=== PATIENT | female | born 1985 | race Caucasian/White ===

== ENCOUNTER → 2016-10-31 | Outpatient (CLI) | payer BC ==
[~2016-10-31] MED LIST: DPPI400 INJ; LORA10TA51 PO; NAPR1CAP12 PO
== END | disposition home or self-care (01) ==
LOC: C.PAPS 14:33
PROVIDERS: ATTEND Obstetrics & Gynecology
DX: Z01.419 Encounter for gynecological examination (general) (routine) without abnormal findings (principal)

== ENCOUNTER → 2016-10-31 | Outpatient (CLI) | payer BC ==
[2016-11-02 11:38] LABS: HERPES SIMPLEX AB IGG-1 >5.00; HERPES SIMPLEX AB IGG-2 0.08
[2016-11-02 21:57] LABS: CHLAMYDIA TRACH RNA*** NOT DETECTED (NOT DETECTED); GC (NEIS GONORRHOEAE)RNA** NOT DETECTED (NOT DETECTED)
== END | disposition home or self-care (01) ==
LOC: C.LAB1850 09:21
PROVIDERS: ATTEND Obstetrics & Gynecology
DX: Z11.3 Encounter for screening for infections with a predominantly sexual mode of transmission (principal)

== ENCOUNTER → 2017-09-04 | Outpatient (CLI) | payer BC ==
[2017-09-04 12:12] LABS: BASO % 0.2 %; BASO ABS # 0.02 K/uL (0-0.2); COMPLETE YES; HEMATOCRIT 40.1 % (37-47); IG% 0.3 %; LYMPH % 30.7 %; LYMPH ABS # 3.37 K/uL (1.2-3.4); MEAN CELL VOLUME 88.1 fL (80-100); MEAN CORPUSCULAR HEMOGLOBIN 28.8 pg (25-34); MEAN CORPUSCULAR HGB CONC 32.7 g/dl (32-36); MEAN PLATELET VOLUME 10.3 fL (7.4-10.4); MONO % 6.8 %; PLATELET COUNT 297 K/uL (130-400); RED BLOOD COUNT 4.55 M/uL (4.2-5.4); WHITE BLOOD COUNT 10.96 K/uL (4.8-10.8)
== END | disposition home or self-care (01) ==
LOC: C.LAB1850 10:35
PROVIDERS: ATTEND Internal Medicine
DX: D72.829 Elevated white blood cell count, unspecified (principal)

== ENCOUNTER 2017-09-13 19:52 | Emergency (ER) | payer BC ==
[~2017-09-13] VITALS: Ht 166.4 cm; Wt 105.9 kg
[2017-09-13 19:55] VITALS: TEMP 36.8; Ht 166.4 cm; Wt 105.9 kg
[2017-09-13] MEDS ORDERED: DICL1GEL34 TOP (20:26)
[2017-09-13] MEDS ORDERED: MEDR150I19 IM (20:26)
[2017-09-13] MEDS ORDERED: FLX/5 PO (20:26)
[2017-09-13] MEDS ORDERED: ASPI-390 PO (20:26)
[2017-09-13] MEDS ORDERED: KETOROLAC TROMETHAMINE 60 MG/2 ML VIAL IM STA (20:28)
[2017-09-13] MEDS ORDERED: DIAZEPAM 5MG TAB PO STA (20:28)
--- NOTE | 2017-09-13 20:45 | EMERGENCY ROOM VISIT NOTE ---
ED Visit Note First contact with patient: 20:01 CHIEF COMPLAINT: Low back pain HISTORY OF PRESENT ILLNESS: This is a 32-year-old female presents to the emergency department with complaint of pain in the low back which has been getting progressively worse over the past several days. She states she has been dealing with low back pain and a "pinched nerve in my back" for the past month, has been doing physical therapy, and felt that she was improving, until the past few days when her pain became more severe. The pain was gradual in onset, is now constant and worse with movement, especially bending over and lifting her legs, 8/10. She has been taking Excedrin and her Flexeril without much improvement. She denies any known injury to the back. Denies any bowel or bladder difficulties or saddle paresthesias. There has been no leg numbness or weakness. No recent direct trauma to the back. No nausea/vomiting or abdominal pain, diarrhea, constipation, bloody or black stools, urinary symptoms , or abnormal vaginal discharge/bleeding. REVIEW OF SYSTEMS: No significant prior back injuries, no abdominal pain, vomiting or diarrhea, no chest pain or shortness of breath. No dysuria or increased urinary frequency. PMH: The patient is healthy; there is no significant medical or surgical history. SOCIAL HISTORY: Patient lives at home. ALLERGIES: No known allergies PHYSICAL EXAM: Vital Signs: Reviewed Nurse's notes. MENTAL STATUS: Alert and oriented. NECK: Supple, non-tender. ABDOMEN: Soft, non-tender, no palpable masses or HSM. Bowel sounds normal throughout. BACK: Tenderness in the paraspinous muscles diffuse across the lumbar area, most significant on the left. No tenderness over the spinous processes of the lumbar vertebrae. LEGS: Normal strength including dorsi-flexion and plantar flexion of the feet. Negative bilateral straight leg raising, normal and symmetrical knee and ankle reflexes. EMERGENCY DEPARTMENT COURSE: I examined the patient. Differential diagnosis includes lumbar muscle strain, sprain, disc herniation, sciatica, UTI. No trauma to suggest acute fracture or subluxation. No red flags on history or exam to concern for cauda equina syndrome. Neuro exam is normal with no deficits. Patient was given IM Toradol and PO Valium, with good improvement in her pain. UA and urine are negative. She was encouraged to continue her physical therapy and follow closely with her PCP, as well as given strict return precautions should her symptoms worsen, she verbalized understanding. She was provided with prescription strength naproxen for pain management and encouraged to continue use of her Flexeril as needed for muscle spasms. Patient was discharged home in stable condition and ambulatory. Problem List Medical Problems: (1) History of torn meniscus of left knee Status: Chronic (2) History of torn meniscus of right knee Status: Chronic Current/Historical Medications Scheduled Medroxyprogesterone Acetate (C (Medroxyprogesterone Aceta), 150 MG IM UD Naproxen (Naprosyn), 500 MG PO BID Scheduled PRN Xtwteei-Gqwzryswkzebz-Mytyojqy (Excedrin Migraine), 1 TAB PO UD PRN for Headache Cyclobenzaprine HCl (Cyclobenzaprine HCl), 5-10 MG PO HS PRN for Muscle Spasm Diclofenac Sodium (Topical) (Diclofenac Sodium), 1 APPLN TOP BID PRN for Pain Allergies Coded Allergies: No Known Allergies (Verified , 06/21/15) Vital Signs Date Time Temp Pulse Resp B/P (MAP) Pulse Ox O2 Delivery O2 Flow Rate FiO2 09/13/17 22:07 82 18 141/100 100 Room Air 09/13/17 19:55 36.8 84 18 146/83 100 Room Air Laboratory Results Test 09/13/17 20:28 09/13/17 20:40 Bedside Urine Test NEG (NEG) Urine Color YELLOW Urine Appearance CLEAR (CLEAR) Urine pH 7.0 (4.5-7.5) Urine Specific [place] 1.019 (1.000-1.030) Urine Protein NEG (NEG) Urine Glucose (UA) NEG (NEG) Urine Ketones NEG (NEG) Urine Occult Blood NEG (NEG) Urine Nitrite NEG (NEG) Urine Bilirubin NEG (NEG) Urine Urobilinogen NEG (NEG) Urine Leukocyte Esterase NEG (NEG) Medications Administered Medications (Trade) Dose Ordered Sig/Jagruti Route Start Time Stop Time Status Last Admin Dose Admin Ketorolac Tromethamine (Toradol Inj) 60 mg NOW STAT IM 09/13/17 20:28 09/13/17 20:30 DC 09/13/17 20:46 60 MG Diazepam (Valium Tab) 10 mg NOW STAT PO 09/13/17 20:28 09/13/17 20:30 DC 09/13/17 20:46 10 MG Departure Information Impression Primary Impression: Strain of lumbar region Dispostion Home / Self-Care Condition GOOD Prescriptions Naproxen (Naprosyn) 500 Mg Tab 500 MG PO BID for 14 Days, #28 TAB Prov: Noemy Shanks CRNP 09/13/17 Referrals RV. Aguirre MD (PCP) Patient Instructions ED Exercises Lumbar Muscles, ED Sprain Strain Lumbar, [facility] Additional Instructions Take it easy for the next few days, no strenuous activity, heavy lifting, or bending/twisting motions, to allow your back to rest. Alternate heat and ice for comfort. After heat, you may do gentle stretching and massage to the low back. Naproxen as prescribed twice a day for the next two weeks to treat your pain and inflammation in your back. Do not take other NSAIDs while you are taking this medication. Take with food to avoid stomach upset. Continue taking your prescribed Flexeril muscle relaxer as directed, as needed for muscle tightness and spasms. This may make you drowsy. Do not drive or drink alcohol while taking. Follow up with your PCP in the next few days for further management. You should keep your appointment with physical therapy and discussed modifying your exercise plan. Please return to the ER if any problems with bowel or bladder function, numbness in your groin, high fevers, severe abdominal pain or worsening back pain, or if loss of feeling/movement of legs. Work Instructions Return To Work: 2 days Problem Qualifiers Primary Impression: Strain of lumbar region Encounter type: initial encounter Qualified Codes: S39.012A - Strain of muscle, fascia and tendon of lower back, initial encounter
[2017-09-13] MEDS ORDERED: NAPR-22 PO (22:02)
[2017-09-13 22:07] VITALS: BP 141/100; PULSE 82; O2SAT 100
[2017-12-01] MEDS ORDERED: MISCCAP80 PO (08:46)
[2017-12-01] MEDS ORDERED: MULT-506 PO (08:46)
[2017-12-14] MEDS ORDERED: medroxyprogesterone IM (09:38)
[2017-12-14] MEDS ORDERED: DICL1GEL34 (09:50)
[2017-12-14] MEDS ORDERED: [UNRECOGNIZED DRUG - CODE] (09:50)
[2017-12-14] MEDS ORDERED: CYCL10TA6 PO (09:50)
== END 2017-09-13 22:31 | disposition home or self-care (01) ==
LOC: C.EDB 19:53 → C.EDD 22:31
DX: S39.012A Strain of muscle, fascia and tendon of lower back, initial encounter (principal); X58.XXXA Exposure to other specified factors, initial encounter; Z87.828 Personal history of other (healed) physical injury and trauma; Z79.899 Other long term (current) drug therapy

== ENCOUNTER → 2017-11-01 | Outpatient (CLI) | payer BC ==
[~2017-11-01] MED LIST changes: +ASPI-390 PO; +DICL1GEL34 TOP; -DPPI400 INJ; +FLX/5 PO; -LORA10TA51 PO; +MEDR150I19 IM; -NAPR1CAP12 PO
--- NOTE | 2017-11-01 08:50 | DIAGNOSTIC IMAGING REPORT ---
L-SPINE MIN 4 VIEWS ROUTINE HISTORY: 32 years-old Female M54.16 Lumbar [id number] Low back [id number] acute low back pain COMPARISON: None available TECHNIQUE: 5 views of the lumbar spine FINDINGS: RIBS at T12 are hypoplastic. There are 5 nonrib-bearing lumbar type vertebral segments present. No spondylolysis or spondylolisthesis. No acute fracture, subluxation or significant degenerative changes. Round calcifications of the pelvis suggest phleboliths. Soft tissues are unremarkable. IMPRESSION: 1. No acute fracture, subluxation or significant degenerative changes. 2. No spondylolysis or spondylolisthesis. The above report was generated using voice recognition software. It may contain grammatical, syntax or spelling errors. Electronically signed by: Andre Avalos M.D. 11/01/2017 8:49 AM Dictated Date/Time: 11/01/2017 8:48 AM
== END | disposition home or self-care (01) ==
LOC: C.RAD1850 08:21
PROVIDERS: ATTEND Internal Medicine
DX: M54.16 Radiculopathy, lumbar region (principal)

== ENCOUNTER → 2017-11-07 | Outpatient (CLI) | payer BC ==
--- NOTE | 2017-11-07 14:55 | DIAGNOSTIC IMAGING REPORT ---
MRI LUMBAR SPINE W/O CONTRAST CLINICAL HISTORY: Low back pain] disturbance. TECHNIQUE: Sagittal and axial T1, T2 and STIR images were obtained. COMPARISON STUDY: Conventional radiographic study dated 11/01/2017 OBSERVATIONS: The vertebral bodies and posterior elements appear intact. There is no abnormal bony signal present to suggest a marrow replacement process. L1-2: No disc protrusions or extrusions. No evidence of spinal canal or neural foraminal compromise. L2-3: No disc protrusions or extrusions. No evidence of spinal canal or neural foraminal compromise. L3-4: No disc protrusions or extrusions. No evidence of spinal canal or neural foraminal compromise. L4-5: There is a moderate central disc extrusion with secondary deformity of the thecal sac. There is no significant spinal or foraminal stenosis. L5-S1: There is a small central disc protrusion. There is an annular fissure. There is no significant foraminal narrowing. The conus medullaris and cauda equina appear normal. IMPRESSION: 1. Moderate central disc extrusion with secondary deformity of the thecal sac at the L4-5 level 2. Small central disc protrusion at the L5-S1 level Electronically signed by: Wyatt Mansfield M.D. 11/07/2017 2:53 PM Dictated Date/Time: 11/07/2017 2:50 PM
== END | disposition home or self-care (01) ==
LOC: C.MRI 13:55
PROVIDERS: ATTEND Internal Medicine
DX: M51.16 Intervertebral disc disorders with radiculopathy, lumbar region (principal); M51.17 Intervertebral disc disorders with radiculopathy, lumbosacral region; R26.9 Unspecified abnormalities of gait and mobility; R20.0 Anesthesia of skin; Z79.1 Long term (current) use of non-steroidal anti-inflammatories (NSAID)

== ENCOUNTER 2017-11-16 11:49 | Emergency (ER) | payer BC ==
[~2017-11-16] VITALS: Ht 167.6 cm; Wt 111.0 kg
[2017-11-16 12:01] VITALS: TEMP 36.9; Ht 167.6 cm; Wt 111.0 kg
[2017-11-16] MEDS ORDERED: SODIUM CHLORIDE 0.9% 1000ML 2,000 ML IV STA (12:19)
[2017-11-16] MEDS ORDERED: ACETAMINOPHEN IV 100 ML IV STA (12:19)
[2017-11-16] MEDS ORDERED: FAMOTIDINE 20MG/5ML IV PUSH IV STA (12:19)
[2017-11-16] MEDS ORDERED: ONDANSETRON INJ 2 MG/ML 2 ML VIAL IV STA (12:19)
[2017-11-16] MEDS ORDERED: VLT/75 PO (12:37)
--- NOTE | 2017-11-16 12:43 | EMERGENCY ROOM VISIT NOTE ---
History First contact with patient: 12:16 Chief Complaint: GI ASSESSMENT Stated Complaint: BLOOD IN BOWEL, NAUSEA, HEADACHE,FATIGUE, SHAKING Nursing Triage Summary: called pmd today for 2 bm with bright red blood and was told to come to the ED History of Present Illness The patient is a 32 year old female who presents to the Emergency Room with complaints of red blood per rectum twice today with bowel movements. Reports associated symptoms of nausea, MCCARTHY, fatigue. Denies prior episodes. Recently began Diclofenac for chronic back pain. Otherwise, denies anticoagulation. Denies f/c, cough, congestion, CP, SOB. Denies fmhx of colon cancer or IBD. Source of History: patient Onset: This morning Position: other (red blood per rectum) Symptom Intensity: minimal Quality: cramping Timing: intermittent Modifying Factors (Worsening): defecation Modifying Factors (Relieving): other (time) Associated Symptoms: + headache, + nausea, + abdominal pain, + fatigue, + weakness, No diaphoresis, No chest pain, No SOB, No vomiting Review of Systems See HPI for pertinent positives and negatives. A total of ten systems were reviewed and were otherwise negative. Past Medical/Surgical History Medical Problems: (1) Bronchitis (2) History of torn meniscus of left knee (3) History of torn meniscus of right knee (4) Prediabetes (5) Skin problem (6) Stomach problems Family History Cancer Diabetes mellitus FH: aneurysm Heart disease Hypertension Kidney disease Kidney stones Seizures Social History Smoking Status: Never Smoker Smokeless Tobacco Use: No Alcohol Use: occasionally Marital Status: single Housing Status: lives with family Occupation Status: employed Current/Historical Medications Scheduled Diclofenac Sod (Diclofenac Sodium Dr), 75 MG PO BID Medroxyprogesterone Acetate (C (Medroxyprogesterone Aceta), 150 MG IM UD Scheduled PRN Cyclobenzaprine HCl (Cyclobenzaprine HCl), 5-10 MG PO HS PRN for Muscle Spasm Diclofenac Sodium (Topical) (Diclofenac Sodium), 1 APPLN TOP BID PRN for Pain Physical Exam Vital Signs Date Time Temp Pulse Resp B/P (MAP) Pulse Ox O2 Delivery O2 Flow Rate FiO2 11/16/17 17:16 91 20 137/94 98 11/16/17 16:27 88 18 124/76 99 Room Air 11/16/17 14:27 97 18 148/88 97 Room Air 11/16/17 13:49 84 17 11/16/17 13:44 85 21 11/16/17 13:39 88 16 11/16/17 13:34 84 19 11/16/17 13:29 86 15 11/16/17 13:24 87 19 11/16/17 13:19 85 20 11/16/17 13:14 88 22 11/16/17 13:14 79 11/16/17 12:01 36.9 96 20 175/90 100 Room Air Physical Exam GENERAL: Awake, alert, fatigued-appearing, in no distress HENT: Normocephalic, atraumatic. Oropharynx unremarkable. Dry mucus membranes. EYES: Normal conjunctiva. Sclera non-icteric. NECK: Supple. No nuchal rigidity. FROM. No JVD. RESPIRATORY: Clear to auscultation. CARDIAC: Regular rate, normal rhythm. Extremities warm and well perfused. Pulses equal. ABDOMEN: Soft, non-distended. Generalized, lower abdominal discomfort, but no discrete tenderness to palpation. No rebound or guarding. No masses. RECTAL: No external hemorrhoids. Scant dark red blood, guaiac positive. MUSCULOSKELETAL: Chest examination reveals no tenderness. The back is symmetrical on inspection without obvious abnormality. There is no CVA tenderness to palpation. No joint edema. LOWER EXTREMITIES: Calves are equal size bilaterally and non-tender. No edema. No discoloration. NEURO: Normal sensorium. No sensory or motor deficits noted. SKIN: No rash or jaundice noted. Medical Decision & Procedures ER Provider Diagnostic Interpretation: Radiology results as stated below per my review and radiologist interpretation ABDOMEN AND PELVIS CT WITH IV CONTRAST CT DOSE: 1073.15 mGycm HISTORY: Acute generalized abdominal pain red blood per rectum, generalized abd pain TECHNIQUE: Multiaxial CT images of the abdomen and pelvis were performed following the use of intravenous contrast. A dose lowering technique was utilized adhering to the principles of ALARA. COMPARISON STUDY: MRI lumbar spine 11/07/2017 FINDINGS: There are nodules abutting the right major fissure laterally adjacent to the lateral segment right middle lobe measuring up to 10 mm suggesting a perifissural lymph nodes. These are circumscribed and solid appearing. There is no pneumatosis or pneumoperitoneum identified. Imaged inferior cardiac chambers are unremarkable. Gallbladder is mildly contracted. The liver, spleen, pancreas and adrenal glands are within normal limits. Kidneys and ureters appear unremarkable. Urinary bladder is moderately distended. Uterus and adnexa are unremarkable. Minimal air is noted within the lower uterine segment, cervical region. Aorta is normal in course and caliber. No pathologic adenopathy. There is no bowel obstruction or focal bowel wall thickening identified. The inferior portion of the pelvis was not imaged including the distal most rectum. The appendix and terminal ileum appear normal. No ascites identified. The soft tissues appear unremarkable. The imaged bones appear intact. IMPRESSION: 1. No acute intra-abdominal or intrapelvic abnormality identified. Normal appendix. 2. No bowel obstruction or focal bowel wall thickening. 3. Moderate urinary bladder distention. 4. Nodules abutting the right major fissure adjacent to the lateral segment right middle lobe are seen measuring up to 10 mm suggesting probable perifissural lymph nodes. These nodules are likely benign in a patient of this age group. Follow-up guidelines are provided below. Please refer to below summary of Fleischner criteria recommendations for follow-up of incidental CT nodules (Philippe Berger, Guidelines for management of small pulmonary nodules detected on CT scans: A statement from the Fleischner Society, Radiology 237: [phone].) SOLID NODULES Multiple nodules size: >8 mm * Low risk patients: follow-up at 3-6 months, then consider further follow-up at 18-24 months * high risk patients: follow-up at 3-6 months, then at 18-24 months if no change Note: newly detected indeterminate nodule in persons 35 years of age or older. * Low risk patients: minimal or absent history of smoking and/or other known risk factors * high risk patients: history of smoking or of other known risk factors (e.g. first degree relative with lung cancer, or exposure to asbestos, radon, uranium) * if a nodule up to 8 mm is partly solid or is ground glass further follow-up is required after 24 months to exclude possible slow growing adenocarcinoma (LITZY) The above report was generated using voice recognition software. It may contain grammatical, syntax or spelling errors. Electronically signed by: Andre Avalos M.D. 11/16/2017 2:19 PM Dictated Date/Time: 11/16/2017 2:11 PM Laboratory Results 11/16/17 12:45 Red Blood Count 4.41, Mean Corpuscular Volume 87.3, Mean Corpuscular Hemoglobin 28.6, Mean Corpuscular Hemoglobin Concent 32.7, Mean Platelet Volume 9.4, Neutrophils (%) (Auto) 69.9, Lymphocytes (%) (Auto) 21.5, Monocytes (%) (Auto) 7.2, Eosinophils (%) (Auto) 0.7, Basophils (%) (Auto) 0.2, Neutrophils # (Auto) 8.93, Lymphocytes # (Auto) 2.74, Monocytes # (Auto) 0.92, Eosinophils # (Auto) 0.09, Basophils # (Auto) 0.02 11/16/17 12:45 Test 11/16/17 12:40 11/16/17 12:45 11/16/17 13:00 Urine Color YELLOW Urine Appearance CLEAR (CLEAR) Urine pH 6.5 (4.5-7.5) Urine Specific [place] 1.003 (1.000-1.030) Urine Protein NEG (NEG) Urine Glucose (UA) NEG (NEG) Urine Ketones NEG (NEG) Urine Occult Blood NEG (NEG) Urine Nitrite NEG (NEG) Urine Bilirubin NEG (NEG) Urine Urobilinogen NEG (NEG) Urine Leukocyte Esterase NEG (NEG) White Blood Count 12.76 K/uL (4.8-10.8) Red Blood Count 4.41 M/uL (4.2-5.4) Hemoglobin 12.6 g/dL (12.0-16.0) Hematocrit 38.5 % (37-47) Mean Corpuscular Volume 87.3 fL (80-100) Mean Corpuscular Hemoglobin 28.6 pg (25-34) Mean Corpuscular Hemoglobin Concent 32.7 g/dl (32-36) Platelet Count 308 K/uL (130-400) Mean Platelet Volume 9.4 fL (7.4-10.4) Neutrophils (%) (Auto) 69.9 % Lymphocytes (%) (Auto) 21.5 % Monocytes (%) (Auto) 7.2 % Eosinophils (%) (Auto) 0.7 % Basophils (%) (Auto) 0.2 % Neutrophils # (Auto) 8.93 K/uL (1.4-6.5) Lymphocytes # (Auto) 2.74 K/uL (1.2-3.4) Monocytes # (Auto) 0.92 K/uL (0.11-0.59) Eosinophils # (Auto) 0.09 K/uL (0-0.5) Basophils # (Auto) 0.02 K/uL (0-0.2) RDW Standard Deviation 41.6 fL (36.4-46.3) RDW Coefficient of Variation 12.9 % (11.5-14.5) Immature Granulocyte % (Auto) 0.5 % Immature Granulocyte # (Auto) 0.06 K/uL (0.00-0.02) Erythrocyte Sedimentation Rate 19 mm/hr (0-21) Anion Gap 5.0 mmol/L (3-11) Est Creatinine Clear Calc Drug Dose 137.2 ml/min Estimated GFR () 123.1 Estimated GFR (Non- 106.2 BUN/Creatinine Ratio 15.0 (10-20) Lactic Acid Level 0.8 mmol/L (0.4-2.0) Calcium Level 9.1 mg/dl (8.5-10.1) Total Bilirubin 0.3 mg/dl (0.2-1) Direct Bilirubin < 0.1 mg/dl (0-0.2) Aspartate Amino Transf (AST/SGOT) 14 U/L (15-37) Alanine Aminotransferase (ALT/SGPT) 30 U/L (12-78) Alkaline Phosphatase 83 U/L (45-117) C-Reactive Protein 0.60 mg/dl (0-0.29) Total Protein 7.5 gm/dl (6.4-8.2) Albumin 3.8 gm/dl (3.4-5.0) Lipase 195 U/L (73-393) Human Chorionic Gonadotropin, Qual NEG (NEG) Influenza Type A (RT-PCR) Neg for Influ A (NEG) Influenza Type A Antigen Neg for Influ A (NEG) Influenza Type B Antigen Neg for Influ B (NEG) Influenza Type B (RT-PCR) Neg for Influ B (NEG) Laboratory results reviewed by me Medications Administered Medications (Trade) Dose Ordered Sig/Jagruti Route Start Time Stop Time Status Last Admin Dose Admin Sodium Chloride 2,000 ml @ 999 mls/hr Q2H1M STAT IV 11/16/17 12:19 11/16/17 14:19 DC 11/16/17 12:19 999 MLS/HR Ondansetron HCl (Zofran Inj) 4 mg NOW STAT IV 11/16/17 12:19 11/16/17 12:26 DC 11/16/17 13:01 4 MG Famotidine (Pepcid 20mg Iv Push) 20 mg NOW STAT IV 11/16/17 12:19 11/16/17 12:26 DC 11/16/17 13:02 20 MG Acetaminophen 100 ml @ 400 mls/hr NOW STAT IV 11/16/17 12:19 11/16/17 12:33 DC 11/16/17 13:01 400 MLS/HR Sodium Chloride 1,000 ml @ 999 mls/hr Q1H1M STAT IV 11/16/17 15:57 11/16/17 16:57 DC 11/16/17 16:20 999 MLS/HR ECG Per My Interpretation Indication: other (GI Bleed) Rate (beats per minute): 83 Rhythm: sinus rhythm Findings: no acute ischemic change, other (Short DC. Normal axis) ED Course 1216: The patient was evaluated in room B02. A complete history and physical exam was performed. 1532: I reevaluated the patient. She is resting comfortably. I discussed current exam findings. 1652: I reevaluated the patient and discussed her current exam findings with her. I informed her that her influenza swab is still pending. 1708: I reevaluated the patient. Discussed results and discharge instructions: she verbalized understanding and agreement. The patient is ready for discharge when her influenza results are obtained. Medical Decision I reviewed the patient's past medical history, medications, and the nursing notes as described above. Differential diagnosis: Etiologies such as diverticulosis, AVM, coagulopathy, colitis, inflammatory bowel disease, malignancy, Sarah-Garrido tear, esophagitis, peptic ulcer disease , variceal bleed, gastritis, epistaxis, fissure, hemorrhoids, as well as others were entertained. The patient is a 32-year-old woman with a past medical history of migraines, chronic back pain who presents to the emergency department with red blood per rectum 2 today in the setting of generalized fatigue and lightheadedness per hpi. On arrival the patient is in no acute distress, afebrile stable vital signs. Appears clinically dry. She has generalized abdominal discomfort without any discrete tenderness or peritoneal signs. Patient's rectal exam demonstrates scant dark red blood that is guaiac positive. Labs unremarkable. WBC 12 nonspecific. H/H 12/6/38.5. Lactate and ESR wnl. CRP marginally elevated at 0.6. CT abd/pel negative for acute findings. Patient feeling improved after IVF, zofran, pepcid. Etiology of patient rectal bleeding unclear, however given reassuring exam, labs and imaging, no indication for admission or further ED w/ u at this time. Findings and plan for follow-up reviewed with patient. Patient agreeable and d/c'd per discharge instructions. The scribe's documentation has been prepared under my direction and personally reviewed by me in its entirety. I confirm that the note above accurately reflects all work, treatment, procedures, and medical decision making performed by me. Medication Reconcilliation Current Medication List: was personally reviewed by me Blood Pressure Screening Patient's blood pressure: Normal blood pressure Blood pressure disposition: Did not require urgent referral Impression Primary Impression: Hematochezia Additional Impression: Dehydration Departure Information Dispostion Home / Self-Care Referrals RV. Aguirre MD (PCP) Chevy Salas M.D. Forms HOME CARE DOCUMENTATION FORM, IMPORTANT VISIT INFORMATION Patient Instructions ED Dehydration, ED Hematochezia Stable, My [facility] Additional Instructions Please follow up with your primary care physician in the next 1-3 days for re- evaluation and possible GI referral for possible colonoscopy if symptoms persist. The cause of your rectal bleeding is unclear at this time. However, your exam, lab results, and CT scan did not show signs of an emergent condition at this time. Drink plenty of fluids to ensure hydration. Return to the emergency department for worsening symptoms as described in the accompanying instructions. Problem Qualifiers
[2017-11-16 13:03] LABS: BASO % 0.2 %; BASO ABS # 0.02 K/uL (0-0.2); EOS % 0.7 %; EOS ABS # 0.09 K/uL (0-0.5); HEMATOCRIT 38.5 % (37-47); HEMOGLOBIN 12.6 g/dL (12.0-16.0); IG# 0.06 K/uL (0.00-0.02); LYMPH % 21.5 %; LYMPH ABS # 2.74 K/uL (1.2-3.4); MEAN CELL VOLUME 87.3 fL (80-100); MEAN CORPUSCULAR HEMOGLOBIN 28.6 pg (25-34); MEAN CORPUSCULAR HGB CONC 32.7 g/dl (32-36); MEAN PLATELET VOLUME 9.4 fL (7.4-10.4); MONO % 7.2 %; MONO ABS # 0.92 K/uL (0.11-0.59); NEUT % 69.9 %; NEUT ABS # 8.93 K/uL (1.4-6.5); PLATELET COUNT 308 K/uL (130-400); RED CELL DISTRIBUTION WIDTH CV 12.9 % (11.5-14.5); RED CELL DISTRIBUTION WIDTH SD 41.6 fL (36.4-46.3); WHITE BLOOD COUNT 12.76 K/uL (4.8-10.8)
[2017-11-16 13:22] LABS: ALBUMIN 3.8 gm/dl (3.4-5.0); ALT/SGPT 30 U/L (12-78); BLOOD UREA NITROGEN 11 mg/dl (7-18); CALCIUM 9.1 mg/dl (8.5-10.1); CARBON DIOXIDE 29 mmol/L (21-32); CREATININE 0.75 mg/dl (0.60-1.20); GLUCOSE 93 mg/dl (70-99); LIPASE 195 U/L (73-393); POTASSIUM 3.5 mmol/L (3.5-5.1); SODIUM 139 mmol/L (136-145)
[2017-11-16 13:24] LABS: ALKALINE PHOSPHATASE 83 U/L (45-117); AST/SGOT 14 U/L (15-37); TOTAL PROTEIN 7.5 gm/dl (6.4-8.2)
[2017-11-16] MEDS ORDERED: OPTIRAY 320 IV PRN (13:45)
[2017-11-16 13:58] LABS: INFLUENZA B ANTIGEN Neg for Influ B (NEG)
--- NOTE | 2017-11-16 14:21 | DIAGNOSTIC IMAGING REPORT ---
ABDOMEN AND PELVIS CT WITH IV CONTRAST CT DOSE: 1073.15 mGycm HISTORY: Acute generalized abdominal pain red blood per rectum, generalized abd pain TECHNIQUE: Multiaxial CT images of the abdomen and pelvis were performed following the use of intravenous contrast. A dose lowering technique was utilized adhering to the principles of ALARA. COMPARISON STUDY: MRI lumbar spine 11/07/2017 FINDINGS: There are nodules abutting the right major fissure laterally adjacent to the lateral segment right middle lobe measuring up to 10 mm suggesting a perifissural lymph nodes. These are circumscribed and solid appearing. There is no pneumatosis or pneumoperitoneum identified. Imaged inferior cardiac chambers are unremarkable. Gallbladder is mildly contracted. The liver, spleen, pancreas and adrenal glands are within normal limits. Kidneys and ureters appear unremarkable. Urinary bladder is moderately distended. Uterus and adnexa are unremarkable. Minimal air is noted within the lower uterine segment, cervical region. Aorta is normal in course and caliber. No pathologic adenopathy. There is no bowel obstruction or focal bowel wall thickening identified. The inferior portion of the pelvis was not imaged including the distal most rectum. The appendix and terminal ileum appear normal. No ascites identified. The soft tissues appear unremarkable. The imaged bones appear intact. IMPRESSION: 1. No acute intra-abdominal or intrapelvic abnormality identified. Normal appendix. 2. No bowel obstruction or focal bowel wall thickening. 3. Moderate urinary bladder distention. 4. Nodules abutting the right major fissure adjacent to the lateral segment right middle lobe are seen measuring up to 10 mm suggesting probable perifissural lymph nodes. These nodules are likely benign in a patient of this age group. Follow-up guidelines are provided below. Please refer to below summary of Fleischner criteria recommendations for follow-up of incidental CT nodules (Philippe Berger, Guidelines for management of small pulmonary nodules detected on CT scans: A statement from the Fleischner Society, Radiology 237: [phone].) SOLID NODULES Multiple nodules size: >8 mm * Low risk patients: follow-up at 3-6 months, then consider further follow-up at 18-24 months * high risk patients: follow-up at 3-6 months, then at 18-24 months if no change Note: newly detected indeterminate nodule in persons 35 years of age or older. * Low risk patients: minimal or absent history of smoking and/or other known risk factors * high risk patients: history of smoking or of other known risk factors (e.g. first degree relative with lung cancer, or exposure to asbestos, radon, uranium) * if a nodule up to 8 mm is partly solid or is ground glass further follow-up is required after 24 months to exclude possible slow growing adenocarcinoma ([facility]) The above report was generated using voice recognition software. It may contain grammatical, syntax or spelling errors. Electronically signed by: Andre Avalos M.D. 11/16/2017 2:19 PM Dictated Date/Time: 11/16/2017 2:11 PM
[2017-11-16] MEDS ORDERED: SODIUM CHLORIDE 0.9% 1000ML 1,000 ML IV STA (15:57)
[2017-11-16 17:16] VITALS: BP 137/94; PULSE 91; O2SAT 98
[2017-11-16 17:48] LABS: INFLUENZA A PCR Neg for Influ A (NEG); INFLUENZA B PCR Neg for Influ B (NEG)
== END 2017-11-16 17:18 | disposition home or self-care (01) ==
LOC: C.EDB 11:51
DX: K92.1 Melena (principal); E86.0 Dehydration; R11.0 Nausea; R51 Headache; R53.83 Other fatigue

== ENCOUNTER → 2017-11-22 | Outpatient (CLI) | payer BC ==
[~2017-11-22] MED LIST changes: -ASPI-390 PO; +VLT/75 PO
[2017-11-22 15:42] LABS: BASO % 0.2 %; BASO ABS # 0.02 K/uL (0-0.2); EOS % 0.9 %; HEMATOCRIT 38.3 % (37-47); HEMOGLOBIN 12.6 g/dL (12.0-16.0); IG# 0.06 K/uL (0.00-0.02); LYMPH % 27.8 %; LYMPH ABS # 3.12 K/uL (1.2-3.4); MEAN CORPUSCULAR HGB CONC 32.9 g/dl (32-36); MEAN PLATELET VOLUME 10.1 fL (7.4-10.4); MONO % 6.8 %; MONO ABS # 0.76 K/uL (0.11-0.59); NEUT % 63.8 %; NEUT ABS # 7.15 K/uL (1.4-6.5); PLATELET COUNT 354 K/uL (130-400); RED CELL DISTRIBUTION WIDTH CV 13.1 % (11.5-14.5); RED CELL DISTRIBUTION WIDTH SD 42.1 fL (36.4-46.3); WHITE BLOOD COUNT 11.21 K/uL (4.8-10.8)
== END | disposition home or self-care (01) ==
LOC: C.LAB1850 14:21
PROVIDERS: ATTEND Internal Medicine
DX: K62.5 Hemorrhage of anus and rectum (principal)

== ENCOUNTER → 2017-11-23 | Outpatient (CLI) | payer BC ==
--- NOTE | 2017-11-23 17:10 | DIAGNOSTIC IMAGING REPORT ---
MRI OF THE BRAIN WITHOUT IV CONTRAST CLINICAL HISTORY: Syncope. Palpitations. Gait disturbance. Fluctuating blood pressure. COMPARISON STUDY: MRI of the brain dated 01/29/2007. TECHNIQUE: MRI of the brain was performed utilizing various T1 and T2-weighted sequences in the axial, sagittal, and coronal planes. IV contrast was not administered for this examination. FINDINGS: Brain parenchyma: The brain parenchyma is normal in appearance. There is no hemorrhage or mass effect. There is no restricted diffusion to suggest acute ischemia. Jarrett-white matter differentiation is preserved. No extra-axial fluid collection is seen. The cerebellar tonsils are normal in configuration. Ventricles, sulci, and cisterns: Normal in configuration. Pituitary and sella: Unremarkable. Intracranial vasculature: Normal flow voids are maintained at the skull base. Orbits: The bony orbits are grossly intact. Orbital contents are normal in appearance. Sinuses and mastoids: Clear. Calvarium: Unremarkable. Cervical cord: Partially visualized cervical spinal cord is normal in morphology and signal intensity. IMPRESSION: No acute intracranial abnormality. Electronically signed by: Cristian Roth M.D. 11/23/2017 5:09 PM Dictated Date/Time: 11/23/2017 5:05 PM
== END | disposition home or self-care (01) ==
LOC: C.MRI 16:29
PROVIDERS: ATTEND Internal Medicine
DX: G43.909 Migraine, unspecified, not intractable, without status migrainosus (principal); G47.9 Sleep disorder, unspecified; R26.9 Unspecified abnormalities of gait and mobility; R00.2 Palpitations; R41.89 Other symptoms and signs involving cognitive functions and awareness

== ENCOUNTER → 2017-12-07 | Outpatient (CLI) | payer BC ==
[~2017-12-07] MED LIST changes: +CYCL10TA6 PO; +DICL1GEL34; -DICL1GEL34 TOP; -FLX/5 PO; -MEDR150I19 IM; +MISCCAP80 PO; +MULT-506 PO; -VLT/75 PO; +[UNRECOGNIZED DRUG - CODE]; +medroxyprogesterone IM
[2017-12-07 13:34] LABS: HEP C IGG 13 YRS+OLDER_RFLX NEG (NEG)
== END | disposition home or self-care (01) ==
LOC: C.LAB1850 11:07
PROVIDERS: ATTEND Physician Assistant
DX: Z20.2 Contact with and (suspected) exposure to infections with a predominantly sexual mode of transmission (principal)

== ENCOUNTER → 2017-12-12 | Day surgery (SDC) | payer BC ==
[2017-12-01 08:46] VITALS: Ht 168.9 cm; Wt 110.0 kg
[~2017-12-12] VITALS: Ht 168.9 cm; Wt 110.0 kg
[~2017-12-12] MED LIST changes: -CYCL10TA6 PO; -DICL1GEL34; +SODIUM CHLORIDE 0.9% 500ML 500 ML IV ONE; -[UNRECOGNIZED DRUG - CODE]; -medroxyprogesterone IM
--- NOTE | 2017-12-12 09:57 | Endo History and Physical ---
History & Physical Date of Service: Dec 12, 2017. Chief Complaint: Rectal bleeding Referring Physician: Dr. Johnson/ Dr. Chowdary History of Present Illness 32 yo CF presents for colonoscopy secondary to rectal bleeding. Past Surgical History Hx Cardiac Surgery: No Hx Internal Defibrillator: No Hx Pacemaker: No Hx Abdominal Surgery: No Hx of Implantable Prosthesis: No Hx Post-Op Nausea and Vomiting: No Hx Cancer Surgery: No Hx Thoracic Surgery: No Hx Orthopedic: No Hx Urinary Tract Surgery: No Family History None Social History Smoking Status: Never Smoker Hx Substance Use: No Hx Alcohol Use: Yes (OCCASIONAL) Allergies Coded Allergies: Tramadol (Unverified Adverse Reaction, Intermediate, LIGHT HEADED, SHAKY, THROWING UP, 12/12/17) Current Medications Reported Home Medications Medications Dose Route/Sig Max Daily Dose Days Date Category Probiotic (Probiotic Product) 1 Cap Cap 1 Cap PO DAILY 12/01/17 Reported Multivitamin (Multivitamins) Tab 1 Tab PO DAILY 12/01/17 Reported Vital Signs Weight (Kilograms): 110 Height (Feet): 5 Height (Inches): 6.5 Date Time Temp Pulse Resp B/P (MAP) Pulse Ox O2 Delivery O2 Flow Rate FiO2 12/12/17 09:51 36.9 88 18 136/73 (94) 99 Room Air Physical Exam General Appearance: WD/WN, no apparent distress Respiratory/Chest: Auscultation: breath sounds normal Cardiovascular: Heart Auscultation: RRR Abdomen: Bowel Sounds: normal Inspection & Palpation: soft, non-distended, no tenderness, guarding & rebound Assessment and Plan Assessment: 32 yo CF presents for colonoscopy secondary to rectal bleeding. Plan: Proceed with colonoscopy.
--- NOTE | 2017-12-12 10:45 | Discharge Instructions ---
Endoscopy Patient Instructions Date / Procedure(s) Performed Dec 12, 2017. Colonoscopy Allergy Information Coded Allergies: Tramadol (Unverified Adverse Reaction, Intermediate, LIGHT HEADED, SHAKY, THROWING UP, 12/12/17) Discharge Date / Findings Dec 12, 2017. Internal hemorrhoids Medication Instructions OK to resume all medications today as prescribed Reported Home Medications Medications Dose Route/Sig Max Daily Dose Days Date Category Probiotic (Probiotic Product) 1 Cap Cap 1 Cap PO DAILY 12/01/17 Reported Multivitamin (Multivitamins) Tab 1 Tab PO DAILY 12/01/17 Reported Provider Instructions Activity Restrictions - No exercising or heavy lifting for 24 hours. - Do not drink alcohol the day of the procedure. - Do not drive a car or operate machinery until the day after the procedure. - Do not make any important decisions or sign important papers in 24 hours after the procedure. Following Day: - Return to full activity which may include returning to work/school. Diet Start your diet with liquids and light foods (jello, soup, juice, toast). Then eat your usual diet if not nauseated. Treatment For Common After Affects For mild abdominal pain, bloating, or excessive gas: - Rest - Eat lightly - Lie on right side Follow-Up Information Follow-up with Dr. Johnson/ Dr. Chowdary as scheduled Anesthesia Information What You Should Know You have had a procedure that required some medicine to reduce anxiety and discomfort. This treatment is called moderate sedation. After receiving the treatment, you may be sleepy, but you will be able to breathe on your own. The effects of the treatment may last for several hours. Follow these instructions along with Activity/Diet recommendations noted above: * Do NOT do anything where dizziness or clumsiness would be dangerous. * Rest quietly at home today, then you can be up and about tomorrow. * Have a responsible person stay with you the rest of today. * You may have had an I.V. today. If so, you may take the dressing off later today. Recommendations Call your doctor if: * Trouble breathing * Continuous vomiting for more than 24 hours * Temperature above 101 degrees * Severe abdominal pain or bloating * Pain not relieved by pain medicine ordered * There is increased drainage or redness from any incision * A large amount of rectal bleeding greater than 2-3 tablespoons. (If you had a polyp/s removed or have hemorrhoids, a small amount of blood - from the rectum is to be expected.) * You have any unanswered questions or concerns. IN THE EVENT OF A SERIOUS EMERGENCY, GO TO THE NEAREST EMERGENCY ROOM Your discharge instructions were prepared by provider Ashu Will. Patient Instructions Signature Page Rosario Hemphill Patient (or Guardian) Signature/Date: I have read and understand the instructions given to me by my caregivers. Caregiver/RN/Doctor Signature/Date: The above-named patient and/or guardian has received patient instructions on this date. + Original Patient Signature Page (only) stays with chart. Please make copy for patient.
--- NOTE | 2017-12-12 10:54 | GI REPORT ---
Procedure Date: 12/12/2017 10:16 AM Procedure: Colonoscopy Indications: Rectal bleeding Medicines: Monitored Anesthesia Care Complications: No immediate complications. Estimated Blood Loss: Estimated blood loss: none. Procedure: Pre-Anesthesia Assessment: - Prior to the procedure, a History and Physical was performed, and patient medications and allergies were reviewed. The patient's tolerance of previous anesthesia was also reviewed. The risks and benefits of the procedure and the sedation options and risks were discussed with the patient. All questions were answered, and informed consent was obtained. Prior Anticoagulants: The patient has taken no previous anticoagulant or antiplatelet agents. ASA Grade Assessment: III - A patient with severe systemic disease. After reviewing the risks and benefits, the patient was deemed in satisfactory condition to undergo the procedure. After I obtained informed consent, the scope was passed under direct vision. Throughout the procedure, the patient's blood pressure, pulse, and oxygen saturations were monitored continuously. The scope was introduced through the anus and advanced to the terminal ileum. The colonoscopy was performed without difficulty. The patient tolerated the procedure well. The quality of the bowel preparation was good. The terminal ileum, ileocecal valve, appendiceal orifice, and rectum were photographed. Findings: The perianal and digital rectal examinations were normal. Non-bleeding internal hemorrhoids were found during retroflexion. The hemorrhoids were small. Impression: - Non-bleeding internal hemorrhoids. - No specimens collected. Recommendation: - Resume previous diet. - Continue present medications. - Repeat colonoscopy at age 51 for surveillance. - Return to primary care physician as previously scheduled. Ashu Will DO 12/12/2017 10:54:00 AM This report has been signed electronically. Note Initiated On: 12/12/2017 10:16 AM I attest to the content of the Intraoperative Record and orders documented therein, exceptions below
[2017-12-12 11:20] VITALS: BP 126/76; PULSE 77; O2SAT 100
--- NOTE | 2017-12-12 11:27 | Anesthesiology Progress Note ---
Anesthesia Post Op Note Date & Time Dec 12, 2017 at 11:27 Vital Signs Pain Intensity: 0 Vital Signs Past 12 Hours Date Time Temp Pulse Resp B/P (MAP) Pulse Ox O2 Delivery O2 Flow Rate FiO2 12/12/17 11:05 68 18 107/59 (75) 99 Room Air 12/12/17 10:45 76 18 108/57 (74) 99 Room Air 12/12/17 09:51 36.9 88 18 136/73 (94) 99 Room Air Notes Mental Status: alert / awake / arousable, participated in evaluation Pt Amnestic to Procedure: Yes Nausea / Vomiting: adequately controlled Pain: adequately controlled Airway Patency, RR, SpO2: stable & adequate BP & HR: stable & adequate Hydration State: stable & adequate Anesthetic Complications: no major complications apparent
== END | disposition home or self-care (01) ==
LOC: C.GI 09:09
PROVIDERS: ATTEND Internal Medicine
DX: Z12.11 Encounter for screening for malignant neoplasm of colon (principal); K62.5 Hemorrhage of anus and rectum; Z88.8 Allergy status to other drugs, medicaments and biological substances; K64.9 Unspecified hemorrhoids

== ENCOUNTER → 2017-12-14 | Day surgery (SDC) | payer BC ==
[~2017-12-14] VITALS: Ht 167.6 cm; Wt 109.0 kg
[~2017-12-14] MED LIST changes: +CYCL10TA6 PO; +DICL1GEL34; +LIDOCAINE HCL 2% 2 ML VIAL (20MG/ML) ONE; +MIDAZOLAM HCL 1 MG/ML 2ML VIAL ONE; +PROPOFOL IV EMULSION 10 MG/ML 20 ML VIAL IV ONE; -SODIUM CHLORIDE 0.9% 500ML 500 ML IV ONE; +[UNRECOGNIZED DRUG - CODE]; +medroxyprogesterone IM
[2017-12-14 09:41] VITALS: BP 130/71; PULSE 84; O2SAT 99; Ht 167.6 cm; Wt 109.0 kg
--- NOTE | 2017-12-14 11:02 | [facility] Operative Report ---
Operative Report Date of Service Dec 14, 2017. Operative Report Procedure performed: Head-up tilt table test Staff final assembler boat: Lemuel Bueno MD Indication: The patient is a 32-year-old woman with a history of positional dizziness. Procedure in detail: The patient was informed of the risks benefits and alternatives to the intended procedure. She understood such and wished to proceed. She was placed in the supine position on the tilt table. She was secured into place and continuous monitoring was then initiated. This included intermittent blood pressure monitoring, telemetry and pulse oximetry. After a brief supine. The patient was tilted 80. Symptoms and hemodynamics were monitored. At the conclusion of the test the patient was returned to the supine position. Symptoms and hemodynamics were allowed to return to normal prior to conclusion of the case. Patient tolerated the procedure well. There were no immediate complications. Findings: Initial blood pressure is 124/73 with pulse of 75 There were no significant hemodynamic changes during tilting or recovery Blood pressure the conclusion of the case was 122/71 with a pulse of 84 The patient did report some mild dizziness when initially tilted. She had no other symptoms during the test. Impression: Normal head-up tilt table test No evidence of POTS No evidence of vasodepressor or cardioinhibitory effect Symptoms of mild dizziness did not correlate with any hemodynamic changes I attest to the content of the Intraoperative Record and any orders documented therein. Any exceptions are noted below.
== END | disposition home or self-care (01) ==
LOC: C.CATH 09:17
PROVIDERS: ATTEND Internal Medicine Clinical Cardiac Electrophysiology
DX: R42 Dizziness and giddiness (principal)

== ENCOUNTER → 2018-01-15 | Outpatient (CLI) | payer BC ==
[~2018-01-15] MED LIST changes: -LIDOCAINE HCL 2% 2 ML VIAL (20MG/ML) ONE; -MIDAZOLAM HCL 1 MG/ML 2ML VIAL ONE; -PROPOFOL IV EMULSION 10 MG/ML 20 ML VIAL IV ONE
== END | disposition home or self-care (01) ==
LOC: C.PAPS 13:39
PROVIDERS: ATTEND Obstetrics & Gynecology
DX: Z01.419 Encounter for gynecological examination (general) (routine) without abnormal findings (principal)

== ENCOUNTER → 2018-04-12 | Outpatient (CLI) | payer BC ==
--- NOTE | 2018-04-12 14:23 | DIAGNOSTIC IMAGING REPORT ---
BONE SCAN WHOLE BODY HISTORY: Pain. Arthralgia. R60.0,M25.571,M25.572,Z79.1 RADIOTRACER: 24.8 mCi Tc-99m MDP STUDY/IMAGES: Planar anterior and posterior whole body imaging was performed 3 hours following the intravenous administration of radiotracer. COMPARISON: None. FINDINGS: Normal activity characteristics throughout the axial and appendicular skeleton. Images of the hands and wrists as well as lower extremities show no abnormal activity. Normal bilateral renal activity is present. There is no abnormal soft tissue activity. IMPRESSION: Normal bone scan The above report was generated using voice recognition software. It may contain grammatical, syntax or spelling errors. Electronically signed by: Yoshi Lerma M.D. 04/12/2018 2:22 PM Dictated Date/Time: 04/12/2018 2:20 PM
== END | disposition home or self-care (01) ==
LOC: C.NUCL 10:10
PROVIDERS: ATTEND Internal Medicine Rheumatology
DX: R60.0 Localized edema (principal); M25.572 Pain in left ankle and joints of left foot; M25.571 Pain in right ankle and joints of right foot; Z79.1 Long term (current) use of non-steroidal anti-inflammatories (NSAID)